=== PATIENT | male | born 2000 | race Two or more races ===

== ENCOUNTER 2023-08-05 01:26 | Emergency (ER) | payer BC, OTHER ==
[~2023-08-05] VITALS: Ht 177.8 cm; Wt 70.0 kg
[2023-08-05 01:26] VITALS: PULSE 84; RESP 15; O2SAT 96
[2023-08-05] MEDS ORDERED: ONDANSETRON HCL 4 MG/2 ML VIAL IV ONE (02:45)
[2023-08-05] MEDS ORDERED: SODIUM CHLORIDE 0.9% 1,000 ML IVB ONE (02:45)
[2023-08-05] MEDS ORDERED: BACITRACIN TOP OINT 1 UD PKG TOP ONE (02:45)
[2023-08-05] MEDS ORDERED: TETANUS-DIPTH-ACEL PERTUSSIS 0.5ML SYR Tdap IM ONE (02:45)
[2023-08-05] MEDS ORDERED: cefTRIAXone 1GM/50ML D5W 50 ML IV ONE (02:45)
[2023-08-05] MEDS ORDERED: LIDOCAINE W/ EPINEPHRINE 1% 20ML VIAL ID ONE (02:45)
[2023-08-05] MEDS ORDERED: MORPHINE SULFATE 4 MG/ML SYR/VIAL IV ONE (02:45)
[2023-08-05 03:29] LABS: Basophils # (auto) 0.1 10 ^3/uL (0-0.2); Basophils % (auto) 0.4 % (0.0-2.0); Eosinophils # (auto) 0.2 10 ^3/uL (0-0.8); Eosinophils % (auto) 1.2 % (0.0-7.0); Hematocrit 43.2 % (41.0-53.0); Hemoglobin 14.3 g/dL (13.5-17.5); Lymphocytes # (auto) 1.4 10 ^3/uL (0.4-5.4); Lymphocytes % (auto) 7.8 % (10.0-50.0); Mean Corpuscular Hemoglobin 28.7 pg (28.0-32.0); Mean Corpuscular Hgb Conc. 33.1 g/dL (32.0-36.0); Mean Corpuscular Volume 86.7 fL (80.0-100.0); Monocytes # (auto) 0.9 10 ^3/uL (0-1.3); Neutrophils # (auto) 15.9 10 ^3/uL (1.6-8.6); Neutrophils % (auto) 85.6 % (37.0-80.0); Red Blood Cells 4.98 10^6/uL (4.5-5.90); Red Cell Distribution Width 14.1 % (11.8-14.3); White Blood Cell 18.6 10^3/uL (4.4-10.8)
[2023-08-05 03:36] LABS: INR 1.11 (0.9-1.15); Partial Thromboplastin Time 24.5 SEC (24.5-34.5); Prothrombin Time 11.6 sec (9.3-11.8)
[2023-08-05 03:43] LABS: Alanine Aminotransferase 59 U/L (7-40); Albumin 4.4 g/dL (3.2-4.8); Alkaline Phosphatase 90 U/L (46-116); Anion Gap 10 (5-15); Aspartate Aminotransferase 88 U/L (13-40); BUN/Creatinine Ratio 9.4 (10.0-20.0); Bilirubin, Total 0.3 mg/dL (0.2-1.0); Blood Alcohol 88.9 mg/dL (<10); Blood Urea Nitrogen 9 mg/dL (9-23); Calcium 9.1 mg/dL (8.7-10.4); Carbon Dioxide 23 mmol/L (20-30); Chloride 108 mmol/L (98-107); Glucose 107 mg/dL (74-106); Magnesium 1.7 mg/dL (1.6-2.6); Potassium 3.5 mmol/L (3.5-5.1); Sodium 141 mmol/L (136-145); Total Protein 6.9 g/dL (5.7-8.2)
[2023-08-05] MEDS ORDERED: IOHEXOL 300 MG/ML 100ML BOTTLE IJ ONE (04:21)
[2023-08-05 05:54] LABS: Urine WBC None Seen /hpf (0 - 3)
[2023-08-05 06:09] LABS: Urine Bacteria NONE SEEN /hpf (None Seen); Urine Blood 3+ /uL (Negative); Urine Clarity Clear (Clear); Urine Color Colorless (Yellow); Urine Mucus MANY (None Seen); Urine Protein, UAD Negative (Negative); Urine Specific Gravity 1.009 (1.001-1.035); Urine Urobilinogen Normal (Negative)
[2023-08-05 06:10] LABS: Amphetamine Screen, Urine Neg (NEGATIVE); Barbiturate Scree,Urine Neg (NEGATIVE); Benzodiazephine Screen, Urine Neg (NEGATIVE); Cocaine Screen, Urine Neg (NEGATIVE)
[2023-08-05 06:11] LABS: Cannabinoid Screen, Urine Pos (NEGATIVE); Opiate Scree,Urine Neg (NEGATIVE); Phencyclidine Screen, Urine Neg (NEGATIVE)
[2023-08-05] MEDS ORDERED: CLINDAMYCIN HCL 150 MG CAP PO ONE (07:45)
[2023-08-05] MEDS ORDERED: KETOROLAC TROMETH 30 MG/ML 1ML VIAL IV ONE (07:45)
[2023-08-05] MEDS ORDERED: METO-281 PO ×3 (07:46→08:16)
[2023-08-05] MEDS ORDERED: CLIN300C70 PO ×3 (07:46→08:16)
[2023-08-05] MEDS ORDERED: [UNRECOGNIZED DRUG - CODE] ×3 (07:46→08:16)
[2023-08-05] MEDS ORDERED: NAPR1TAB24 PO ×3 (07:46→08:16)
[2023-08-05] MEDS ORDERED: BACIOIN OP ×3 (07:46→08:16)
[2023-08-05 07:50] VITALS: BP 148/81; TEMP 98.2
[2023-08-05 07:53] VITALS: PULSE 93; RESP 15; O2SAT 100
[2023-08-05] MEDS ORDERED: NEOMYCIN-BACITRACIN-POLYM UNITDOSE PKG TOP OINT TOP ONE (08:00)
== END 2023-08-05 08:23 | disposition home or self-care (01) ==
LOC: EDBD 01:26 → ER 01:26
DX: S02.2XXA Fracture of nasal bones, initial encounter for closed fracture (principal); Z79.01 Long term (current) use of anticoagulants; Z79.899 Other long term (current) drug therapy; V49.9XXA Car occupant (driver) (passenger) injured in unspecified traffic accident, initial encounter; W22.10XA Striking against or struck by unspecified automobile airbag, initial encounter; Y93.89 Activity, other specified; Y92.488 Other paved roadways as the place of occurrence of the external cause; Y99.8 Other external cause status
CPT/HCPCS: 36415; 70450; 70486; 71045; 71260; 72125; 74177; 80053; 80307; 80320; 81001; 83735; 85025; 85610; 85730; 90471; 90715; 96365; 96375; 99285; J0696; J1885; J2270; J2405; J7030; Q9967